=== PATIENT | male | born 1995 | race Caucasian/White ===

== ENCOUNTER 2016-11-12 16:58 | Emergency (ER) | payer MEDICARE, MEDICAID ==
[~2016-11-12] VITALS: Ht 167.6 cm; Wt 63.0 kg
[~2016-11-12 16:58] MED LIST: DICY1TAB26 PO; GUAN2ER PO; MONT10TA2 OR; OMPR20CCR; VENTAER INH; ZOFR4TAB3 SL
[2016-11-12 17:02] VITALS: BP 118/76; PULSE 87; RESP 17; TEMP 99.4; O2SAT 100
[2016-11-12] MEDS ORDERED: SODIUM CHLOR 0.9% 1000 ML INJ 1,000 ML IV SCH (17:16)
[2016-11-12 17:22] VITALS: BP 118/70; PULSE 87; RESP 16; O2SAT 100
[2016-11-12] MEDS ORDERED: ZOFR4TAB3 SL (17:23)
--- NOTE | 2016-11-12 17:23 | PD ---
HPI Chief Complaint: GI Complaint Time Seen by Provider: 17:10 Travel History International Travel<30 days: No Contact w/Intl Traveler<30days: No Traveled to known affect area: No History of Present Illness HPI So 21-year-old man who presents emergency department with nausea and vomiting that started today. Patient has a history of abdominal problems. Take Bentyl from time to time. He apparently had bad reflux and he was a baby, had a PEG tube for 10 years, and had failure to thrive. States he wasn't really able to eat solid food for the first 10 years of his life. States he gets pain from time to time and takes Bentyl and that usually takes care of it. He typically does not have vomiting. He's not had other abdominal surgeries. States that today he started getting nausea and vomiting this morning. He felt a little better within the symptoms recurred. He went to get some patricio yanick and he vomited data and so his family brought him to the emergency department. He also states she's been feeling overall weak, he's been having chills, he has a funny numbness and tingling feeling on his right knee. His last bowel movement was this morning and was normal. Has not had any diarrhea. No cough cold symptoms. No sick contacts. No other complaints. He had a mild amount of abdominal pain when he was vomiting one time, but no abdominal pain now. No other complaints. History Past Medical History Narrative Medical ADHD History of abdominal problems, previous reflux, previous G-tube placement Social History Alcohol Use: No Tobacco Use: No Allergies-Medications (Allergen,Severity, Reaction): Coded Allergies: Codeine (Verified Allergy, Severe, Dizziness, 11/12/16) Lortab (Verified Adverse Reaction, Severe, LETHARGIC, SLEEPING ALL THE TIME, 11/12/16) Zantac (Verified Adverse Reaction, Severe, AMS, 11/12/16) Reported Meds & Prescriptions Reported Meds & Active Scripts Active Reported Prilosec (Omeprazole) 20 Mg Cap 20 Mg PO DAILY Singulair (Montelukast Sodium) 10 Mg Tab 10 Mg PO HS Ventolin Hfa 18 GM Inh (Albuterol Sulfate) 90 Mcg/Act Aer 2 Puff INH Q4-6H PRN Review of Systems Except as stated in HPI: all other systems reviewed are Neg Physical Exam Narrative GENERAL: Well-appearing 21-year-old man, no acute distress. SKIN: Warm and dry. HEAD: Atraumatic. Normocephalic. NECK: Trachea midline. No JVD. CARDIOVASCULAR: Regular rate and rhythm. No murmur appreciated. RESPIRATORY: No accessory muscle use. Clear to auscultation. Breath sounds equal bilaterally. GASTROINTESTINAL: Abdomen soft, non-tender, nondistended. Hepatic and splenic margins not palpable. MUSCULOSKELETAL: No obvious deformities. No edema. NEUROLOGICAL: Awake and alert. No obvious cranial nerve deficits. Motor grossly within normal limits. Normal speech. PSYCHIATRIC: Appropriate mood and affect; insight and judgment normal. Data Data Last Documented VS Vital Signs Date Time Temp Pulse Resp B/P Pulse Ox O2 Delivery O2 Flow Rate FiO2 11/12/16 18:20 77 16 122/70 100 Room Air 11/12/16 17:02 99.4 Orders Complete Blood Count With Diff (11/12/16 17:16) Comprehensive Metabolic Panel (11/12/16 17:16) Lipase (11/12/16 17:16) Iv Access Insert/Monitor (11/12/16 17:16) Ondansetron Inj (Zofran Inj) (11/12/16 17:30) Sodium Chlor 0.9% 1000 Ml Inj (Ns 1000 M (11/12/16 17:16) Sodium Chloride 0.9% Flush (Ns Flush) (11/12/16 17:30) Labs Laboratory Tests Test 11/12/16 17:35 White Blood Count 10.5 TH/MM3 Red Blood Count 5.62 MIL/MM3 Hemoglobin 15.3 GM/DL Hematocrit 46.0 % Mean Corpuscular Volume 81.7 FL Mean Corpuscular Hemoglobin 27.1 PG Mean Corpuscular Hemoglobin 33.2 % Concent Red Cell Distribution Width 13.1 % Platelet Count 292 TH/MM3 Mean Platelet Volume 7.9 FL Neutrophils (%) (Auto) 88.6 % Lymphocytes (%) (Auto) 6.9 % Monocytes (%) (Auto) 3.8 % Eosinophils (%) (Auto) 0.1 % Basophils (%) (Auto) 0.6 % Neutrophils # (Auto) 9.3 TH/MM3 Lymphocytes # (Auto) 0.7 TH/MM3 Monocytes # (Auto) 0.4 TH/MM3 Eosinophils # (Auto) 0.0 TH/MM3 Basophils # (Auto) 0.1 TH/MM3 CBC Comment DIFF FINAL Differential Comment Sodium Level 136 MEQ/L Potassium Level 4.1 MEQ/L Chloride Level 99 MEQ/L Carbon Dioxide Level 27.8 MEQ/L Anion Gap 9 MEQ/L Blood Urea Nitrogen 14 MG/DL Creatinine 1.10 MG/DL Estimat Glomerular Filtration 84 ML/MIN Rate Random Glucose 93 MG/DL Calcium Level 8.9 MG/DL Total Bilirubin 0.9 MG/DL Aspartate Amino Transf 28 U/L (AST/SGOT) Alanine Aminotransferase 16 U/L (ALT/SGPT) Alkaline Phosphatase 77 U/L Total Protein 7.5 GM/DL Albumin 3.7 GM/DL Lipase 78 U/L [facility] Medical Decision Making Medical Screen Exam Complete: Yes Emergency Medical Condition: Yes Interpretation(s) LABS: CBC is unremarkable. CMP is unremarkable Lipase is normal. Differential Diagnosis Gastritis, enteritis, food poisoning, obstruction, other Narrative Course Medical decision making INITIAL: Is a very well-appearing 21-year-old man presents emergent or nausea vomiting since today. No URI symptoms. A little bit of pain one time and vomiting but none now. Is a benign abdominal exam. Is unusual history of failure to thrive with the previous G-tube throughout most of his childhood. States he gets pains from time to time at the area of the previous scar. Nonetheless he looks well. I don't see evidence obstruction. Is not distended. Is not vomiting now. We'll check some screening labs, given Zofran , recommend outpatient follow-up. Diagnosis Primary Impression: Vomiting Qualified Code: R11.2 - Non-intractable vomiting with nausea, unspecified vomiting type Additional Instructions: Use Zofran as needed for nausea or vomiting. Follow-up with your primary doctor in the next 2-4 days. Return to the emergency department for any worsening abdominal pain, high fevers , bloody diarrhea, or any other new or worsening symptoms. Med/Other Pt SpecificInfo: Prescription(s) given Disposition: 01 DISCHARGE HOME Condition: Stable Cristofer Carrillo MD Nov 12, 2016 17:23
[2016-11-12] MEDS ORDERED: PRIL20CA9 PO (17:27)
[2016-11-12] MEDS ORDERED: VENTAER INH (17:27)
[2016-11-12] MEDS ORDERED: MONT10TA2 PO (17:27)
[2016-11-12] MEDS ORDERED: ONDANSETRON HCL 4 MG/2 ML VIAL IVP ONE (17:30)
[2016-11-12] MEDS ORDERED: SODIUM CHLORIDE 0.9% FLUSH 10 ML FLUSH IV FLUSH PRN (17:30)
[2016-11-12 17:50] LABS: AUTOMATED NEUTROPHIL # 9.3 TH/MM3 (1.8-7.7); BASOPHIL # 0.1 TH/MM3 (0-0.2); BASOPHIL % 0.6 % (0.0-2.0); EOSINOPHIL % 0.1 % (0.0-4.0); LYMPH % 6.9 % (9.0-44.0); LYMPHOCYTE # 0.7 TH/MM3 (1.0-4.8); MEAN CELL VOLUME 81.7 FL (80.0-100.0); MEAN CORPUSCULAR HEMOGLOBIN 27.1 PG (27.0-34.0); MEAN CORPUSCULAR HGB CONC 33.2 % (32.0-36.0); MONO % 3.8 % (0.0-8.0); NEUT % 88.6 % (16.0-70.0); PLATELET COUNT 292 TH/MM3 (150-450); RED BLOOD COUNT 5.62 MIL/MM3 (4.50-5.90); RED CELL DISTRIBUTION WIDTH 13.1 % (11.6-17.2); WHITE BLOOD COUNT 10.5 TH/MM3 (4.0-11.0)
[2016-11-12 17:59] LABS: CHLORIDE 99 MEQ/L (98-107); POTASSIUM 4.1 MEQ/L (3.5-5.1); SODIUM (NA) 136 MEQ/L (136-145)
[2016-11-12 18:01] LABS: HEMO FLAGS DIFF FINAL
[2016-11-12 18:03] LABS: ANION GAP 9 MEQ/L (5-15); BICARBONATE 27.8 MEQ/L (21.0-32.0); BLOOD UREA NITROGEN 14 MG/DL (7-18)
[2016-11-12 18:06] LABS: ALT (GPT) 16 U/L (12-78); AST (GOT) 28 U/L (15-37); GLOMERULAR FILTRATION RATE 84 ML/MIN (>89)
[2016-11-12 18:07] LABS: TOTAL BILIRUBIN ADULT 0.9 MG/DL (0.2-1.0)
[2016-11-12 18:08] LABS: ALKALINE PHOSPHATASE 77 U/L (45-117)
[2016-11-12 18:20] VITALS: BP 122/70; PULSE 77; RESP 16; O2SAT 100
== END 2016-11-12 18:40 | disposition home or self-care (01) ==
LOC: PHED 16:58
DX: R11.2 Nausea with vomiting, unspecified (principal)
CPT/HCPCS: 80053; 83690; 85025; 96361; 96374; 99284; J2405; J7030

== ENCOUNTER 2016-12-15 18:44 | Emergency (ER) | payer MEDICARE, MEDICAID ==
[~2016-12-15] VITALS: Ht 167.6 cm; Wt 61.0 kg
[~2016-12-15 18:44] MED LIST changes: -DICY1TAB26 PO; -GUAN2ER PO; -MONT10TA2 OR; +MONT10TA2 PO; -OMPR20CCR; +PRIL20CA9 PO; -ZOFR4TAB3 SL
[2016-12-15 18:50] VITALS: BP 130/75; PULSE 81; RESP 18; TEMP 97.9; O2SAT 100
== END 2016-12-15 19:32 | disposition left against medical advice (07) ==
LOC: PHED 18:44
DX: R20.0 Anesthesia of skin (principal); Z53.21 Procedure and treatment not carried out due to patient leaving prior to being seen by health care provider
CPT/HCPCS: 99281

== ENCOUNTER 2016-12-15 22:57 | Emergency (ER) | payer MEDICARE, MEDICAID ==
[~2016-12-15] VITALS: Ht 167.6 cm; Wt 61.2 kg
[2016-12-15 23:24] VITALS: BP 116/78; PULSE 72; RESP 18; TEMP 98.2; O2SAT 98
== END 2016-12-15 23:56 | disposition left against medical advice (07) ==
LOC: PHED 22:57
DX: R11.0 Nausea (principal); Z53.21 Procedure and treatment not carried out due to patient leaving prior to being seen by health care provider
CPT/HCPCS: 99281

== ENCOUNTER 2017-11-14 17:25 | Emergency (ER) | payer MEDICAID, MEDICARE ==
[~2017-11-14] VITALS: Ht 167.6 cm; Wt 52.9 kg
[2017-11-14 17:29] VITALS: BP 122/64; PULSE 63; RESP 16; TEMP 97.8; O2SAT 99
[2017-11-14] MEDS ORDERED: SODIUM CHLOR 0.9% 1000 ML INJ 1,000 ML IV SCH (18:42)
[2017-11-14] MEDS ORDERED: SODIUM CHLORIDE 0.9% FLUSH 10 ML FLUSH IV FLUSH PRN (18:45)
[2017-11-14 19:00] VITALS: BP_SYST 109; BP_SYST 110; BP_SYST 151; BP_DIAS 61; BP_DIAS 66; BP_DIAS 68; RESP 20
--- NOTE | 2017-11-14 19:01 | PD ---
HPI Chief Complaint: Cold / Flu Symptoms Time Seen by Provider: 18:35 Travel History International Travel<30 days: No Contact w/Intl Traveler<30days: No Traveled to known affect area: No History of Present Illness HPI 22-year-old male that presents to the ED for evaluation of weakness and vertigo as well as nausea and vomiting. Per patient she's had this since Tuesday. Per patient's his ride his been having "stomach flu". Per patient on Tuesday history of having nausea and vomiting as well as diarrhea and abdominal cramping. Per patient he was able to take OT C bands with some relief and symptoms improved. Per patient started morning he was doing fine except that in the night he started having symptoms again as well as on Tuesday as well as this morning. Per patient's symptoms continue which is per prompter evaluation. He states having some congestion and cough. Overall he feels weak. Per patient he feels like whenever his moves his head to one side he gets dizzy like the room spinning. He denies ever having flank this before. Unclear if he had tetanus shot. He has a history of asthma has a history of surgeries to his abdomen versus he had a PEG tube. Per patient he takes Bentyl on occasion to help with abdominal discomfort. Denies any chest pain or shortness of breath. Other medical issues. Has not seen anybody for this. Has multiple allergies to different medications. PFSH Past Medical History ADD: Yes ADHD: Yes Asthma: Yes Anxiety: No Cardiovascular Problems: Yes (murmur) Developmental Delay: Yes (AUTISM ) Diminished Hearing: No Gastrointestinal Disorders: No GERD: Yes Musculoskeletal: No Neurologic: No Psychiatric: Yes (add) Respiratory: No Immunizations Current: Yes Past Surgical History Abdominal Surgery: Yes (FEEDING TUBE REMOVED AND REPAIRED) Genitourinary Surgery: Yes (UNDESCENDED TESTICLE ) Gynecologic Surgery: Yes (may 2004 left testicle undescended, rt done in 2005) Oral Surgery: Yes (10 TEETH, THEN 4 TEETH) Other Surgery: Yes Social History Alcohol Use: No Tobacco Use: No Substance Use: No Allergies-Medications (Allergen,Severity, Reaction): Coded Allergies: codeine (Unverified Allergy, Severe, Dizziness, 11/14/17) acetaminophen (Unverified Adverse Reaction, Severe, LETHARGIC, SLEEPING ALL THE TIME, 11/14/17) hydrocodone (Unverified Adverse Reaction, Severe, LETHARGIC, SLEEPING ALL THE TIME, 11/14/17) ranitidine (Unverified Adverse Reaction, Severe, AMS, 11/14/17) Reported Meds & Prescriptions Reported Meds & Active Scripts Active Zofran Odt (Ondansetron Odt) 4 Mg Tab 4 Mg SL Q6HR PRN Meclizine (Meclizine HCl) 25 Mg Tab 25 Mg PO TID PRN Reported Singulair (Montelukast Sodium) 10 Mg Tab 10 Mg PO HS Ventolin Hfa 18 GM Inh (Albuterol Sulfate) 90 Mcg/Act Aer 2 Puff INH Q4-6H PRN Review of Systems Except as stated in HPI: all other systems reviewed are Neg Physical Exam Narrative GENERAL: Well-nourished, well-developed patient in no apparent distress. SKIN: Warm and dry. HEAD: Atraumatic. Normocephalic. EYES: Pupils equal and round reactive to light and accommodation. No scleral icterus. No injection or drainage. ENT: No nasal bleeding or discharge. Mucous membranes pink and moist. TMs are clear with no sign of infection or perforation. No mastoid tenderness. Ear canals are intact bilaterally. No lymphadenopathy. Nostril mucosa is red and moist with clear mucus noted. No sinus tenderness to palpation noted. Tonsils are not enlarged or swollen. No ulvua Deviation. Tongue is midline. NECK: Trachea midline. No JVD. No meningeal signs noted CARDIOVASCULAR: Regular rate and rhythm. RESPIRATORY: No accessory muscle use. Clear to auscultation. Breath sounds equal bilaterally. GASTROINTESTINAL: Abdomen soft, non-tender, nondistended. Hepatic and splenic margins not palpable. MUSCULOSKELETAL: Extremities without clubbing, cyanosis, or edema. No obvious deformities. Full range of motion of the upper and lower extremities bilaterally. 2+ pulses bilaterally. NEUROLOGICAL: Awake and alert. No obvious cranial nerve deficits. Motor grossly within normal limits. Five out of 5 muscle strength in the arms and legs. Normal speech. PSYCHIATRIC: Appropriate mood and affect; insight and judgment normal. Data Data Last Documented VS Vital Signs Date Time Temp Pulse Resp B/P (MAP) Pulse Ox O2 Delivery O2 Flow Rate FiO2 11/14/17 19:00 70 20 151/61 (91) 66 20 109/68 (82) 66 110/66 (81) 11/14/17 17:29 97.8 99 Orders Orders Complete Blood Count With Diff (11/14/17 18:42) Comprehensive Metabolic Panel (11/14/17 18:42) Lipase (11/14/17 18:42) Lactic Acid (11/14/17 18:42) Iv Access Insert/Monitor (11/14/17 18:42) Sodium Chlor 0.9% 1000 Ml Inj (Ns 1000 M (11/14/17 18:42) Sodium Chloride 0.9% Flush (Ns Flush) (11/14/17 18:45) Orthostatic Vital Signs (11/14/17 18:42) Influenzae A/B Antigen (11/14/17 18:42) Meclizine (Antivert) (11/14/17 19:45) Ed Discharge Order (11/14/17 20:31) Labs Laboratory Tests Test 11/14/17 18:50 White Blood Count 8.2 TH/MM3 Red Blood Count 5.59 MIL/MM3 Hemoglobin 15.5 GM/DL Hematocrit 46.2 % Mean Corpuscular Volume 82.7 FL Mean Corpuscular Hemoglobin 27.6 PG Mean Corpuscular Hemoglobin Concent 33.5 % Red Cell Distribution Width 13.2 % Platelet Count 300 TH/MM3 Mean Platelet Volume 8.4 FL Neutrophils (%) (Auto) 59.0 % Lymphocytes (%) (Auto) 31.1 % Monocytes (%) (Auto) 6.4 % Eosinophils (%) (Auto) 1.8 % Basophils (%) (Auto) 1.7 % Neutrophils # (Auto) 4.9 TH/MM3 Lymphocytes # (Auto) 2.6 TH/MM3 Monocytes # (Auto) 0.5 TH/MM3 Eosinophils # (Auto) 0.1 TH/MM3 Basophils # (Auto) 0.1 TH/MM3 CBC Comment DIFF FINAL Differential Comment Blood Urea Nitrogen 16 MG/DL Creatinine 1.10 MG/DL Random Glucose 98 MG/DL Total Protein 7.9 GM/DL Albumin 4.1 GM/DL Calcium Level 8.9 MG/DL Alkaline Phosphatase 63 U/L Aspartate Amino Transf (AST/SGOT) 21 U/L Alanine Aminotransferase (ALT/SGPT) 15 U/L Total Bilirubin 0.7 MG/DL Sodium Level 137 MEQ/L Potassium Level 3.9 MEQ/L Chloride Level 102 MEQ/L Carbon Dioxide Level 28.6 MEQ/L Anion Gap 6 MEQ/L Estimat Glomerular Filtration Rate 83 ML/MIN Lactic Acid Level 1.0 mmol/L Lipase 91 U/L MDM Medical Decision Making Medical Screen Exam Complete: Yes Emergency Medical Condition: Yes Medical Record Reviewed: Yes Interpretation(s) CBC & BMP Diagram 11/14/17 18:50 Total Protein 7.9, Albumin 4.1, Calcium Level 8.9, Alkaline Phosphatase 63, Aspartate Amino Transf (AST/SGOT) 21, Alanine Aminotransferase (ALT/SGPT) 15, Total Bilirubin 0.7 lactic acid WNL lipase WNL influenza negative Differential Diagnosis Nausea and vomiting versus GI bug versus gastroenteritis versus acute abdomen versus dehydration versus vertigo versus influenza Narrative Course 22-year-old male that presents to the ED for evaluation of possible "GI bug". Patient was properly examined and was found to have signs and symptoms consistent appears to be likely viral illness. We'll do labs. Patient was started on IV fluids. Labs showed no sign of acute disease. Patient was reassured. Patient was given fluids as well as meclizine some relief. Patient likely has vertigo. Possibly from viral illness. We'll treat with meclizine and Zofran. Follow with PCP. See ED if worsening symptoms. Diagnosis Primary Impression: Vertigo Additional Impression: Nausea & vomiting Qualified Codes: R11.2 - Nausea with vomiting, unspecified Patient Instructions: General Instructions Additional Instructions: Your blood work here was essentially normal. Take medications as prescribed. F/ u with PCP. See ED if worsening symptoms. Med/Other Pt SpecificInfo: Prescription(s) given Scripts Ondansetron Odt (Zofran Odt) 4 Mg Tab 4 MG SL Q6HR Y for Nausea/Vomiting, #20 TAB 0 Refills Prov: David Griffin MD 11/14/17 Meclizine (Meclizine) 25 Mg Tab 25 MG PO TID Y for VERTIGO, #12 TAB 0 Refills Prov: David Griffin MD 11/14/17 Disposition: 01 DISCHARGE HOME Condition: Stable Tyson Merino Nov 14, 2017 19:01
[2017-11-14 19:04] LABS: AUTOMATED NEUTROPHIL # 4.9 TH/MM3 (1.8-7.7); BASOPHIL # 0.1 TH/MM3 (0-0.2); BASOPHIL % 1.7 % (0.0-2.0); EOSINOPHIL # 0.1 TH/MM3 (0-0.4); EOSINOPHIL % 1.8 % (0.0-4.0); HEMATOCRIT 46.2 % (39.0-51.0); HEMOGLOBIN 15.5 GM/DL (13.0-17.0); LYMPH % 31.1 % (9.0-44.0); LYMPHOCYTE # 2.6 TH/MM3 (1.0-4.8); MEAN CELL VOLUME 82.7 FL (80.0-100.0); MEAN CORPUSCULAR HEMOGLOBIN 27.6 PG (27.0-34.0); MEAN CORPUSCULAR HGB CONC 33.5 % (32.0-36.0); MEAN PLATELET VOLUME 8.4 FL (7.0-11.0); MONO % 6.4 % (0.0-8.0); MONOCYTE # 0.5 TH/MM3 (0-0.9); PLATELET COUNT 300 TH/MM3 (150-450); RED BLOOD COUNT 5.59 MIL/MM3 (4.50-5.90); RED CELL DISTRIBUTION WIDTH 13.2 % (11.6-17.2); WHITE BLOOD COUNT 8.2 TH/MM3 (4.0-11.0)
[2017-11-14 19:25] LABS: CHLORIDE 102 MEQ/L (98-107); SODIUM (NA) 137 MEQ/L (136-145)
[2017-11-14 19:28] LABS: CALCIUM 8.9 MG/DL (8.5-10.1)
[2017-11-14 19:29] LABS: ALBUMIN 4.1 GM/DL (3.4-5.0); BICARBONATE 28.6 MEQ/L (21.0-32.0); BLOOD UREA NITROGEN 16 MG/DL (7-18); GLUCOSE,RANDOM 98 MG/DL (74-106)
[2017-11-14 19:32] LABS: ALT (GPT) 15 U/L (12-78); AST (GOT) 21 U/L (15-37); GLOMERULAR FILTRATION RATE 83 ML/MIN (>89)
[2017-11-14 19:33] LABS: TOTAL BILIRUBIN ADULT 0.7 MG/DL (0.2-1.0)
[2017-11-14 19:34] LABS: TOTAL PROTEIN 7.9 GM/DL (6.4-8.2)
[2017-11-14 19:35] LABS: ALKALINE PHOSPHATASE 63 U/L (45-117)
[2017-11-14] MEDS ORDERED: MECLIZINE HCL 25 MG TAB PO ONE (19:45)
[2017-11-14] MEDS ORDERED: MECL-62 PO (20:01)
[2017-11-14] MEDS ORDERED: ZOFR4TAB3 SL (20:01)
== END 2017-11-14 20:44 | disposition home or self-care (01) ==
LOC: PHED 17:25 → PHEFT 20:44
DX: R42 Dizziness and giddiness (principal); R11.2 Nausea with vomiting, unspecified; R53.1 Weakness; R10.9 Unspecified abdominal pain; R19.7 Diarrhea, unspecified; J45.909 Unspecified asthma, uncomplicated; F84.0 Autistic disorder; F90.9 Attention-deficit hyperactivity disorder, unspecified type; K21.9 Gastro-esophageal reflux disease without esophagitis
CPT/HCPCS: 80053; 83605; 83690; 85025; 87804; 96360; 99284; J7030